=== PATIENT | male | born 1945 | race Caucasian/White ===

== ENCOUNTER 2024-10-04 07:45 | Day surgery (SDC) | payer MEDICARE ==
[~2024-10-04 07:45] MED LIST: Sodium Chloride 0.9% 10 ML Syringe FLUSH PRN
[2024-10-04 08:20] LABS: GLUCOSE,POC 115 mg/dL (70-140)
[2024-10-04] MEDS: Sodium Chloride 0.9% 1,000 ML IV SCH (08:30)
[2024-10-04] MEDS ORDERED: Midazolam 1 MG/ML 2 ML SDV ONE (08:44)
[2024-10-04] MEDS ORDERED: Propofol 200 MG/20 ML SDV ONE (08:44)
[2024-10-04 10:38] VITALS: BP 146/79; PULSE 72
== END 2024-10-04 10:50 | disposition home or self-care (01) ==
LOC: KA.SDS 07:45
PROVIDERS: ATTEND Family Medicine
DX: D12.6 Benign neoplasm of colon, unspecified (principal); K51.90 Ulcerative colitis, unspecified, without complications; K57.30 Diverticulosis of large intestine without perforation or abscess without bleeding; K64.8 Other hemorrhoids; K64.4 Residual hemorrhoidal skin tags; Z86.0100 Personal history of colon polyps, unspecified; E78.2 Mixed hyperlipidemia; E11.9 Type 2 diabetes mellitus without complications; I25.10 Atherosclerotic heart disease of native coronary artery without angina pectoris; I10 Essential (primary) hypertension; Z79.899 Other long term (current) drug therapy; Z87.891 Personal history of nicotine dependence
CPT/HCPCS: 00811; 82947; 99100; J2250; J2704; J7030